=== PATIENT | female | born 1975 | race Hispanic/Latino ===

== ENCOUNTER 2025-01-21 13:01 | Day surgery (SDC) | payer BC ==
--- NOTE | 2025-01-17 11:29 | EKG ---
[facility] Test Date: 2025-01-17 Test Time: 11:33:25 Pat Name: MARLEN LUNDBERG Department: [facility] Room: Gender: F Core Baker: [id number] : 1975 Requested By: LISSETH ROSARIO Order Number: [id number] Reading MD: Bao Schumacher Measurements Intervals [place] Rate: 73 P: 47 WY: 128 QRS: 37 QRSD: 89 T: -73 QT: 405 QTc: 446 Interpretive Statements Sinus rhythm Repol abnrm suggests ischemia, diffuse leads Electronically Signed On 01-20-2025 13:04:52 [employer]ATIONAL ED INSTRUCTOR by Bao Schumacher Please click the below link to view image of tracing.
[2025-01-17 11:46] LABS: IMMATURE GRANULOCYTE ABSOLUTE 0.02 K/uL (0-1); NUCLEATED RED BLOOD CELLS 0.0 % (0.0-0.19); PLATELET COUNT (AUTO) 250 K/uL (130-400); RED BLOOD CELL COUNT(AUTO) 5.15 MIL/uL (4.00-5.50); RED CELL DISTRIBUTION WIDTH 14.0 % (11.0-15.5); WHITE BLOOD COUNT (AUTO) 9.5 K/uL (4.8-10.8)
[2025-01-17 11:54] LABS: CREATININE 0.8 mg/dL (0.5-1.0); GLOMERULAR FILTR. RATE CALC 89.0 mL/min (>90); GLUCOSE,RANDOM 166.0 mg/dL (70-105); SODIUM SERUM 139.0 mmol/L (136-145); UREA NITROGEN, BLOOD 9.0 mg/dL (7-18)
[2025-01-17 11:56] LABS: INR 0.99 (0.85-1.15)
[2025-01-17 12:20] VITALS: BP 124/73; PULSE 70; RESP 17; TEMP 97.2
[2025-01-21] VITALS (14 sets, daily range): BP systolic 112–154; BP diastolic 57–84; PULSE 61–76; RESP 14–19; TEMP 97.3–98.3
[~2025-01-21] VITALS: Ht 170.2 cm; Wt 131.7 kg
[2025-01-21] MEDS: DEXTROSE 50%-WATER 50 ML DISP.SYRIN IV ONE (13:48)
[2025-01-21] MEDS ORDERED: MIDAZOLAM HCL 1 MG/ML 2ML VIAL ONE (14:02)
[2025-01-21] MEDS ORDERED: LIDOCAINE HCL 1% MDV 50ML VIAL ONE (14:02)
[2025-01-21] MEDS ORDERED: SODIUM BICARB 50MEQ 50ML VIAL 50 ML ONE (14:02)
[2025-01-21] MEDS ORDERED: IODIXANOL 320 MG/ML 100 ML VIAL ONE (14:03)
[2025-01-21] MEDS ORDERED: DEXTROSE 50%-WATER 50 ML DISP.SYRIN IV ONE (15:03)
[2025-01-21] MEDS ORDERED: GLYCOPYRROLATE 0.2 MG/ML 5 ML VIAL ONE (15:50)
[2025-01-21] MEDS ORDERED: NEOSTIGMINE METHYLSULFATE 1MG/ML IV ONE (15:51)
--- NOTE | 2025-01-21 16:50 | NUR ---
PATIENT RETURNED TO DAY PATIENT ROOM 15 FROM PACU BY DOUGIE MCGUIRE. S/P ICD INSERTION. DRESSING TO LEFT UPPER CHEST DRY/INTACT. SMALL AMOUNT OF RED BLOOD NOTED TO SIGHT. SLING IN PLACE TO LEFT ARM.
--- NOTE | 2025-01-21 18:30 | NUR ---
DISCHARGE INSTRUCTIONS PROVIDED TO PATIENT AND PATIENT'S MOTHER. PROVIDED THEM WITH GAUZE/TEGADERM (X 5 EACH) TO DO DAILY DRESSING CHANGES. INSTRUCTED ON HOW TO CHANGE DRESSING ONCE A DAY FOR 5 DAYS. MOTHER VERBALIZED UNDERSTANDING.
--- NOTE | 2025-01-21 18:40 | NUR ---
RE: CXR CXR RESULTS SENT TO DR ROSARIO FOR REVIEW. NO NEW ORDERS, OK TO PROCEED WITH DISCHARGE HOME.
--- NOTE | 2025-01-21 19:14 | NUR ---
PATIENT DISCHARGED FROM HOSPITAL VIA WHEELCHAIR BY DOUGIE FORREST AND ASSISTED INTO PRIVATE VEHICLE DRIVEN BY MOTHER.
--- NOTE | 2025-01-21 19:15 | HMCIMG ---
EXAM: CR Chest, 2 View. CLINICAL HISTORY: S/P ICD COMPARISON: None provided. FINDINGS: AICD lead overlies the right ventricle. Moderate cardiomegaly and pulmonary vascular congestion. Mild bilateral perihilar and bibasilar airspace disease presumed reflect mild pulmonary edema. No pleural effusion or pneumothorax. IMPRESSION: 1. Moderate cardiomegaly and pulmonary vascular congestion. 2. Mild bilateral perihilar and bibasilar airspace disease, likely representing mild pulmonary edema. /[place]
== END 2025-01-21 19:15 | disposition home or self-care (01) ==
LOC: DAH 13:01
PROVIDERS: ATTEND Internal Medicine Cardiovascular Disease
DX: I42.2 Other hypertrophic cardiomyopathy (principal); I47.20 Ventricular tachycardia, unspecified; I10 Essential (primary) hypertension; E78.5 Hyperlipidemia, unspecified; E11.9 Type 2 diabetes mellitus without complications; E66.9 Obesity, unspecified; Z68.41 Body mass index [BMI] 40.0-44.9, adult; Z79.01 Long term (current) use of anticoagulants; Z88.7 Allergy status to serum and vaccine; Z79.899 Other long term (current) drug therapy; Z98.890 Other specified postprocedural states
CPT/HCPCS: 80048; 85025; 85610; 85730; 36415; 93005; 33249; 33286; 82948 ×3; 71045; A4649; C1722; C1895; J3010 ×2; J0690; J0665; J3490 ×4; J7070 ×2; J2250; J2704; J2710; J2371; A4215; A6251; A4222; A4221; A4216; A6223; A4606; A4223 ×3; Q9967